=== PATIENT | male | born 1980 | race African-American/Black ===

== ENCOUNTER 2017-10-18 09:39 | Day surgery (SDC) | payer SELFPAY ==
[2017-10-18 10:10] LABS: #Lymphocytes 1.3 thou/uL (1.20-3.40); #Monocytes 0.3 thou/uL (0.11-0.59); #Neutrophils 5.4 thou/uL (1.40-6.50); %Eosinophils 0.4 % (0.0-10.0); %Lymphocytes 18.6 % (21.0-51.0); %Monocytes 4.7 % (0.0-10.0); %Neutrophils 76.4 % (42.0-75.0); Hemoglobin 16.9 g/dL (14.0-18.0); Mean Corpuscular HGB CONC 33.9 g/dL (32.0-36.0); Mean Corpuscular Hemoglobin 29.8 pg (27.0-31.0); Mean Corpuscular Volume 87.9 fL (78.0-98.0); Mean Platelet Volume 6.5 fL (7.4-10.4); Platelet Count 232 thou/uL (130-400); RBC Distribution Width 12.2 % (11.5-14.5); Red Blood Cell (RBC) Count 5.67 mill/uL (4.70-6.10); White Blood Cell (WBC) Count 7.1 thou/uL (4.8-10.8)
[2017-10-18] MEDS ORDERED: Ketorolac Tromethamine 30 MG/ML VIAL ONE (10:20)
[2017-10-18] MEDS ORDERED: Ondansetron ODT 4 MG TAB ONE (10:20)
[2017-10-18 11:43] LABS: ALT (SGPT) 16 U/L (8-55); AST (SGOT) 14 U/L (5-34); Albumin 4.6 g/dL (3.5-5.0); Alkaline Phosphatase 124 U/L (40-150); Anion Gap 17 mmol/L (10-20); BUN (Urea Nitrogen) 14 mg/dL (8.9-20.6); Bilirubin, Total 0.8 mg/dL (0.2-1.2); Calc. Creatinine Clearance 0 mL/min (70-130); Carbon Dioxide 26 mmol/L (22-29); Chloride 103 mmol/L (98-107); Estimated GFR-MDRD 88; Globulin 2.6 g/dL (2.4-3.5); Glucose 177 mg/dL (70-105); Lipase 12 U/L (8-78); Potassium 4.1 mmol/L (3.5-5.1); Protein, Total 7.2 g/dL (6.0-8.3); Sodium 142 mmol/L (136-145)
[2017-10-18] MEDS ORDERED: MEROPENEM 1 GM/50 ML 1 GM in Premix Bag 1 BAG IVPB SCH (11:45)
--- NOTE | 2017-10-18 12:26 | CT ---
CT ABDOMEN AND PELVIS WITH CONTRAST: Date: 10/18/17 HISTORY: Severe periumbilical pain. Right lower quadrant pain. COMPARISON: None. FINDINGS: Lung bases are clear. No pericardial effusion. The appendix is dilated with abnormal periappendiceal fluid, as well as focal areas of right paracoli c gutter gas. Small volume free fluid in the pelvis. Aortoiliac contour is nonaneurysmal. The spleen, liver, gallbladder, adrenal glands, and pancreas are unremarkable. IMPRESSION: Ruptured acute appendicitis. The appendix extends caudad from the cecal apex and extends down into th e pelvis. Noe Coreas notified of findings at 1105 hours. CODE CR. POS: [facility]
[2017-10-18] MEDS ORDERED: ISOVUE-370 76%-LOCM 1 ML ONE (12:48)
--- NOTE | 2017-10-18 12:57 | HP ---
HISTORY OF PRESENT ILLNESS: Jaime Jade is a 37-year-old black male, onset of pain last night , right lower quadrants associated with nausea, vomiting, anorexia, increased pain with movement. He is not any fever or chills. He presented to the emergency room today and a CAT scan revealed change s consistent with appendicitis, it was suggested it was ruptured, but that is unlikely. His white co unt is normal. ALLERGIES: None. TOBACCO: 1/2 pack per day. ALCOHOL: None. MEDICATIONS: None. PAST SURGICAL AND MEDICAL HISTORY: Noncontributory. REVIEW OF SYSTEMS: Noncontributory. FAMILY HISTORY: Diabetes mellitus, end-stage renal disease, otherwise noncontributory. The patient lives with his family. He is not . His sister and niece are with him. PHYSICAL EXAMINATION: VITAL SIGNS: Heart rate 70, respiratory rate 18, blood pressure 120/74. HEENT: Unremarkable. LUNGS: Clear to auscultation. CARDIAC: Regular rate and rhythm without murmur or gallop. ABDOMEN: Soft, tenderness in right lower quadrant, guarding, rebound. McBurney's point. EXTREMITIES: Unremarkable. No ankle edema, palpable pedal pulses. NEUROLOGIC: Intact. No lymphadenopathy in neck, axilla, groins. Cranial nerves intact. No neurolo gical deficit. LABORATORY DATA: White count 7, hemoglobin 16, platelet count normal. Comprehensive metabolic profi le normal except for glucose of 177. ASSESSMENT AND PLAN: Appendicitis. Recommend laparoscopic video appendectomy. Risk of infection, b leeding, reoperation, open procedure discussed. Questions answered. Plan outpatient appendectomy to day unless findings at operation contradict outpatient therapy.
[2017-10-18] MEDS ORDERED: Acetaminophen 1,000 MG in Premix Bag 1 BAG IVPB SCH (13:15)
[2017-10-18] MEDS ORDERED: Fentanyl 100 MCG/2 ML VIAL ONE ×2 (13:39→14:08)
[2017-10-18] MEDS ORDERED: Bupivacaine HCl 0.5%/Epinephrine 1:200,000/PF 30 ml Vial ONE (14:06)
[2017-10-18] MEDS ORDERED: HYDROmorphone 0.5 MG/0.5 ML SYRINGE ONE (14:08)
[2017-10-18] MEDS ORDERED: Ondansetron HCl/PF 4 MG/2 ML Vial IVP PRN (14:55)
[2017-10-18] MEDS ORDERED: Promethazine HCl 25 MG/ML VIAL IM PRN (14:55)
[2017-10-18] MEDS ORDERED: HYDROmorphone 2 MG/ML VIAL SLOW IVP PRN (14:55)
[2017-10-18] MEDS ORDERED: Promethazine HCl 25 MG/ML VIAL SLOW IVP PRN (14:55)
[2017-10-18] MEDS ORDERED: Dexamethasone 20 MG/5 ML VIAL ONE (14:59)
[2017-10-18] MEDS ORDERED: Lidocaine 1% PF 5 ML VIAL ONE (14:59)
[2017-10-18] MEDS ORDERED: Succinylcholine Chloride 20 MG/ML 10 ml SYRINGE FS ONE (14:59)
[2017-10-18] MEDS ORDERED: ePHEDrine/0.9% NaCl/PF SYRINGE 50 mg/10 ml ONE (14:59)
[2017-10-18] MEDS ORDERED: PROPOFOL 200 MG/20 ML VIAL ONE (14:59)
[2017-10-18] MEDS ORDERED: Ondansetron HCl/PF 4 MG/2 ML Vial ONE (14:59)
[2017-10-18] MEDS ORDERED: Meperidine HCl/PF 25 MG/ML VIAL ONE (15:20)
--- NOTE | 2017-10-18 19:19 | OP ---
DATE OF PROCEDURE: 10/18/2017 PREOPERATIVE DIAGNOSIS: Acute appendicitis. POSTOPERATIVE DIAGNOSIS: Acute appendicitis. PROCEDURE: Laparoscopic video appendectomy. SURGEON: Bakari Godinez M.D. ANESTHESIA: General. Local 0.5% Marcaine with epinephrine, 30 mL. DESCRIPTION OF PROCEDURE: Patient taken to the operating room under general anesthesia, abdomen was clipped of hair, prepared with ChloraPrep and draped in routine fashion. Childs catheter placed at th e beginning of the procedure and removed at the end. Infraumbilical incision made. Pneumoperitoneum to 15 mmHg obtained with the Veress needle. A 0.5% Marcaine with epinephrine infiltrated into skin and subcutaneous tissue about each port site. Right lateral subcostal incision made and a 5 port brock lauri under laparoscopic visualization. Suprapubic incision made and a 12 port placed. Appendix was n oted be acutely inflamed. Mesoappendix is taken down with the LigaSure. Stump of the appendix, angelica de [facility] Endo-RONA blue load stapler. Stapled cecal stump hemostasis gained with clips and was hemostatic . Appendix placed in Endobag and removed and submitted to Pathology. Good hemostasis noted. Suprap ubic fascia approximated with 0 Vicryl suture. Irrigant and pneumoperitoneum evacuated. All removed and all skin incisions approximated with interrupted subdermal 4-0 Monocryl and DermaGlue applied.
== END 2017-10-18 16:10 | disposition home or self-care (01) ==
LOC: ERS 09:39 → SDC 11:38
PROVIDERS: ATTEND Specialist
PROC: 0DTJ4ZZ Resection of Appendix, Percutaneous Endoscopic Approach (ICD-10-PCS; principal; 2017-10-18)
DX: K35.80 Unspecified acute appendicitis (principal); F17.210 Nicotine dependence, cigarettes, uncomplicated
CPT/HCPCS: 36415; 74177; 80053; 83690; 85025; 88304; 96374; 96375; J0131; J0670; J1100; J1170; J1885; J2001; J2175; J2185; J2270; J2405; J2704; J3010; Q0162